=== PATIENT | female | born 1980 | race Caucasian/White ===

== ENCOUNTER 2021-04-04 13:35 | Emergency (ER) | payer OTHER ==
[~2021-04-04] VITALS: Ht 165.1 cm; Wt 52.2 kg
[2021-04-04] MEDS ORDERED: XANAX1 MG PO (14:42)
[2021-04-04] MEDS ORDERED: METHADOSE40 MG PO (14:43)
[2021-04-04 16:43] LABS: ABSOLUTE LYMPHOCYTES 1.8 thou/uL (0.8-5.3); ABSOLUTE MONOCYTES 0.4 thou/uL (0.0-1.2); ABSOLUTE NEUTROPHILS 1.1 thou/uL (1.6-8.1); BASOPHILS 1.1 %; EOSINOPHILS 1.3 %; HEMATOCRIT 37.1 % (37.0-47.0); HEMOGLOBIN 12.6 gm/dL (12.0-15.0); LYMPHOCYTES 53.7 %; MCH 29.5 pg (26.0-34.0); MCHC 33.9 g/dL (28.0-37.0); MCV 87.1 fL (80.0-100.0); MONOCYTES 11.3 %; MPV 7.2 fl. (7.2-11.1); NUCLEATED RBCS 0 /100WBC; PLATELET COUNT* 199 thou/uL (150-400); POLYS 32.6 %; RBC 4.26 mil/uL (4.20-5.00); RDW-CV 13.7 % (10.5-14.5); WBC 3.4 thou/uL (4.0-11.0)
[2021-04-04 16:54] LABS: CALCIUM 8.4 mg/dL (8.5-10.1); CREATININE 0.8 mg/dL (0.6-1.3)
[2021-04-04 16:57] LABS: ALBUMIN 3.9 g/dL (3.4-5.0); TOTAL BILIRUBIN 0.3 mg/dL (<0.1-1.0); TOTAL PROTEIN 8.1 g/dL (6.4-8.2)
[2021-04-04 17:18] LABS: URINE BILIRUBIN NEGATIVE (Negative); URINE BLOOD TRACE (Negative); URINE CLARITY CLEAR; URINE COLOR YELLOW; URINE GLUCOSE-RANDOM NEGATIVE (Negative); URINE KETONES NEGATIVE (Negative); URINE LEUKOCYTES-REFLEX NEGATIVE (Negative); URINE NITRITE-REFLEX NEGATIVE (Negative); URINE PROTEIN NEGATIVE (Negative)
[2021-04-04] MEDS ORDERED: ZOFRAN ODT4 MG DISSOLVE (17:43)
[2021-04-04] MEDS ORDERED: TESSALON PERLE100 M1 PO (17:43)
[2021-04-04] MEDS ORDERED: VENTOLIN HFA 1818 GM INH (17:47)
[2021-04-04 18:07] VITALS: BP 132/80
--- NOTE | 2021-04-05 12:01 | EKG ---
[place] [address] ELECTROCARDIOGRAM REPORT Name: OSVALDO MARTINEZ Room: [facility]#: [id number] Admission: 04/04/21 Attend Phys: Discharge: 04/04/21 Date of : 82 Date of Service: 04/04/21 163 Report #: [id number] THIS REPORT FOR: //name// [facility] ED Test Date: 2021-04-04 Test Time: 16:31:52 Pat Name: OSVALDO MARTINEZ Department: Room: Gender: Game Operator: LOWE : 1980 Requested By: [place] Order Number: [id number] MD: Judson Dove Measurements Intervals [place] Rate: 63 P: 74 GA: 161 QRS: 26 QRSD: 88 T: 48 QT: 459 QTc: 470 Interpretive Statements Sinus rhythm No previous ECG available for comparison Electronically Signed On 04-05-2021 12:01:39 CDT by Judson Dove [email or web address] <ELECTRONICALLY SIGNED> By: Judson Dove MD, [facility] 04/05/21 1201 D: 05/1630 30 Judson Dove MD, FACC /EPI
== END 2021-04-04 18:08 | disposition home or self-care (01) ==
LOC: M.ERS 13:35
PROVIDERS: Emergency Medicine Emergency Medical Services
DX: R05 Cough (principal); Z20.822 Contact with and (suspected) exposure to COVID-19; E78.00 Pure hypercholesterolemia, unspecified; F17.210 Nicotine dependence, cigarettes, uncomplicated; Z98.890 Other specified postprocedural states